=== PATIENT | male | born 1990 | race Caucasian/White ===

== ENCOUNTER 2023-09-18 20:06 | Emergency (ER) | payer SELFPAY ==
[~2023-09-18] VITALS: Ht 185.4 cm; Wt 129.6 kg
[~2023-09-18 20:06] MED LIST: NO MEDS
[2023-09-18 20:12] VITALS: BP 141/79; PULSE 73; RESP 18; TEMP 98.9
[2023-09-18] MEDS ORDERED: OxyCODONE HCL/ACETAMINOPHEN 5-325 MG TABLET PO ONE (22:45)
[2023-09-18] MEDS ORDERED: IBUP-1492 PO (22:58)
[2023-09-18] MEDS ORDERED: PENI500T2 PO (22:58)
[2023-09-18] MEDS: PENICILLIN V POTASSIUM 500 MG TABLET PO ONE (23:05)
== END 2023-09-18 23:10 | disposition home or self-care (01) ==
LOC: EMS 20:06
DX: K08.89 Other specified disorders of teeth and supporting structures (principal)
CPT/HCPCS: 99283

== ENCOUNTER 2024-03-26 08:48 | Emergency (ER) | payer OTHER ==
[~2024-03-26] VITALS: Ht 182.9 cm; Wt 125.0 kg
[~2024-03-26 08:48] MED LIST changes: +IBUP-1492 PO; +PENI500T2 PO
[2024-03-26 09:45] LABS: BASOPHILS % (AUTO) 0.6 % (0.0-2.0); EOSINOPHILS % (AUTO) 0 % (1.0-6.0); HEMATOCRIT 49.5 % (41-53); HEMOGLOBIN 16.5 g/dL (13.5-17.5); LYMPHOCYTES # (AUTO) 1.1 K/uL (1.0-4.8); LYMPHOCYTES % (AUTO) 14.1 % (22.0-44.0); MEAN CORPUSCULAR HEMOGLOBIN 29.9 pg (26.0-34.0); MEAN CORPUSCULAR HGB CONC 33.3 G/dL (31.0-37.0); MEAN CORPUSCULAR VOLUME 90 fL (80-100); MONOCYTES # (AUTO) 0.9 K/uL (0.1-1.0); MONOCYTES % (AUTO) 12.2 % (2.0-9.0); NEUTROPHILS # (AUTO) 5.7 K/uL (1.8-7.7); NEUTROPHILS % (AUTO) 73.1 % (40.0-70.0); PLATELET COUNT (AUTO) 148 K/uL (150-450); RED BLOOD CELL COUNT(AUTO) 5.52 MIL/uL (4.50-5.90); RED CELL DISTRIBUTION WIDTH 13.2 % (11.5-14.5); WHITE BLOOD COUNT (AUTO) 7.8 K/uL (4.5-11.0)
[2024-03-26] MEDS: ACETAMINOPHEN 500 MG TABLET PO ONE (09:48)
[2024-03-26 09:49] LABS: ANION GAP 5 mmol/L (8-16); CALCIUM, TOTAL 7.8 mg/dL (8.8-10.5); CARBON DIOXIDE 28 mmol/L (22-29); CHLORIDE 100 mmol/L (98-107); CREATININE 0.89 mg/dL (0.60-1.30); GLOMERULAR FILTR. RATE CALC > 60 mL/min (>60); GLUCOSE,RANDOM 138 mg/dL (70-110); POTASSIUM 3.2 mmol/L (3.5-5.1); SODIUM SERUM 133 mmol/L (136-145); UREA NITROGEN, BLOOD 9 mg/dL (7-18)
[2024-03-26] MEDS: SODIUM CHLORIDE 0.9% 1,000 ML IV ONE (09:49)
[2024-03-26] MEDS: FAMOTIDINE 20 MG/2 ML VIAL IVP ONE (09:49)
[2024-03-26] MEDS: KETOROLAC TROMETHAMINE 30 MG/ML VIAL IVP ONE (09:49)
[2024-03-26 09:56] LABS: ALANINE AMINOTRANSFERASE 73 U/L (12-78); ALKALINE PHOSPHATASE 87 U/L (46-116); ASPARTATE AMINOTRANSFERASE 60 U/L (15-37); BILIRUBIN,TOTAL 0.4 mg/dL (0.1-1.0); LIPASE 79 U/L (16-77); TOTAL PROTEIN, SERUM 7.1 g/dL (6.4-8.2)
[2024-03-26] MEDS ORDERED: ONDA-104 PO (10:21)
[2024-03-26 10:43] LABS: COVID AG,FIA SOURCE NASAL SWAB
[2024-03-26] MEDS: POTASSIUM CHLORIDE 20 MEQ ER TABLET PO ONE (10:45)
[2024-03-26 11:28] LABS: SARS-COV2 (COVID) ANTIGEN,FIA Negative (Negative)
[2024-03-26 11:38] VITALS: BP 118/80; PULSE 86; RESP 20; TEMP 98.6; O2SAT 97
[2024-03-26 11:42] LABS: INFLUENZA TYPE A NEGATIVE FOR TYPE A (NEGATIVE); INFLUENZA TYPE B NEGATIVE FOR TYPE B (NEGATIVE)
== END 2024-03-26 11:42 | disposition home or self-care (01) ==
LOC: EMS 08:50
DX: K52.9 Noninfective gastroenteritis and colitis, unspecified (principal); E87.6 Hypokalemia; F12.90 Cannabis use, unspecified, uncomplicated; Z20.822 Contact with and (suspected) exposure to COVID-19
CPT/HCPCS: 99284; 96374; 96361; 96375; 87426; 80048; 80076; 83690; 85025; 87804; 36415; J1885; J3490; J7030; 99285